=== PATIENT | female | born 1955 | race Caucasian/White ===

== ENCOUNTER → 2017-06-15 | Outpatient (CLI) | payer BC ==
--- NOTE | 2017-06-15 11:21 | BD ---
EXAMINATION TYPE: MG DEXA axial skeleton. DATE OF EXAM: 06/15/2017 COMPARISON: 2014 CLINICAL HISTORY: DISORDER OF BONE AND CARTILAGE Height: 5'6 Weight: 194 FRAX RISK QUESTIONS: Alcohol (3 or more units per day): no Family History (Parent hip fracture): no Glucocorticoids (More than 3mos): no (Ex: prednisone, prednisolone, methylprednisolone, dexamethasone, and hydrocortisone). History of Fracture in Adulthood: no Secondary Osteoporosis: 1. Type 1 Diabetes: no 2. Hyperthyroidism: no 3. Menopause before 45: no 4. Malnutrition: no 5. Chronic liver disease: no Rheumatoid Arthritis: no Current Tobacco Use: no RISK FACTORS HISTORY OF: Postmenopausal woman: MEDICATIONS: Additional Medications: cholesterol, Additional History: osteoporosis EXAM MEASUREMENTS: Bone mineral densitometry was performed using the [employer] System. Bone mineral density as measured about the Lumbar spine is: ----- L1-L4(G/cm2): 0.844 T Score Values are as follows: ----- L2: -3.0 ----- L3: -3.0 ----- L4: -2.5 ----- L1-L4: -2.8 Bone mineral density has: Increased 5.6% since study of: 05/07/2015 Bone mineral density about the R hip (g/cm2): 0.761 Bone mineral density about the L hip (g/cm2): 0.773 T Score values are as follows: -----R Neck: -2.0 -----L Neck: -1.9 -----R Total: -1.9 -----L Total: -2.0 Bone mineral density has: Increased 0.4% since study of: 05/07/2015 IMPRESSION: Osteoporosis (T Score less than -2.5) as noted by T Score values at theL1-L4 There is increased fracture risk and therapy is usually indicated based on age. Re-Screen 1-2 years. NOTE: T-SCORE=SD OF THE YOUNG ADULT MEAN.
--- NOTE | 2017-06-15 12:02 | WWHP ---
[facility] - HISTORY AND PHYSICAL DATE OF SERVICE: 06/15/2017 CHIEF COMPLAINT: The patient is here for her routine gynecologic exam and mammogram. HPI: This is a 61-year-old, G2, P2, with an LMP of 2013. The patient is without gynecologic complaints and denies any postmenopausal bleeding. She was prescribed Fosamax for her osteoporosis in 2014, but she states she never took the medication because of concerns over possible side affects and risks. PAST MEDICAL HISTORY: Elevated cholesterol and osteoporosis. MEDICATIONS: 1. Atorvastatin 10 mg daily. 2. Aspirin 81 mg daily. 3. Probiotic 1 tablet daily. 4. Citracal petite with vitamin D3 two tablets in the a.m. and one tablet in the p.m. 5. Co Q10 two hundred mg daily. 6. Vitamin B12 one thousand mg daily. ALLERGIES: No known drug allergies. PAST SURGICAL HISTORY: section x2, colonoscopy in 2011 and this was her second one. 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 SOCIAL HISTORY: She denies tobacco, alcohol, and drug use. She has been since 1977 and does not work outside the home but does watch her 4 grandchildren. FAMILY HISTORY: Both parents had hypertension. Sister and brother have diabetes. Brother has CHF, mother had colon cancer and an ND. REVIEW OF SYSTEMS: The weight has been stable. She denies respiratory, cardiac or GI problems. PHYSICAL EXAM: Blood pressure 122/87, height 5 feet 6 inches, weight 196 pounds. Temperature 98.1, pulse 92. This is a well-developed, well-nourished, white female, who is alert and oriented x3, in no acute distress. HEENT is within normal limits. NECK: Supple without mass or thyromegaly. CHEST AND LUNGS: Clear to auscultation. HEART: Regular rate and rhythm. Breasts are without mass or discharge. Axillary exam is negative for adenopathy. BACK: Negative for CVA tenderness. ABDOMEN: Soft, nontender, without palpable masses. PELVIC EXAM: External genitalia reveals [id number] atrophy without lesions. Cervix and vagina reveal mild to moderate atrophy without lesions and there is no evidence of prolapse. The uterus is mid position, nongravid size and nontender. There are no palpable adnexal masses or tenderness. Rectovaginal exam is negative for mass or tenderness and is negative for occult blood. EXTREMITIES: Nontender. IMPRESSION: 1. A 61-year-old menopausal female, with normal gynecologic exam. 2. History of osteoporosis, not on medication. PLAN: 1. Pap smear was performed. 2. Self breast examination was discussed. 3. Mammogram will be done today. 4. Osteoporosis management was discussed. She states she will consider medication for the osteoporosis as we have discussed her increased risk for bone fracture. Bone density testing will be done today. We will further discuss medications after we discuss her results. 5. Colonoscopy is due and she states she will have this done later this month. 6. She will return in 1 year. MMODL / IJN: [id number] /
--- NOTE | 2017-06-17 07:07 | MM ---
Reason for exam: screening (asymptomatic). Last mammogram was performed 2 years and 2 months ago. History: Patient is postmenopausal. Physical Findings: A clinical breast exam by your physician is recommended on an annual basis and results should be correlated with mammographic findings. MG Screening Mammo w CAD Bilateral CC and MLO view(s) were taken. Prior study comparison: April 16, 2015, bilateral MG diagnostic mammo w CAD JAG. March 12, 2014, bilateral MG screening mammo w CAD. There are scattered fibroglandular densities. There is no new dominant lesion. ASSESSMENT: Benign, BI-RAD 2 RECOMMENDATION: Routine screening mammogram of both breasts in 1 year.
== END ==
LOC: WWCWWP 09:51
PROVIDERS: ATTEND Obstetrics & Gynecology
DX: Z12.31 Encounter for screening mammogram for malignant neoplasm of breast (principal); M81.0 Age-related osteoporosis without current pathological fracture
CPT/HCPCS: 77080; G0202

== ENCOUNTER → 2017-06-23 | Outpatient (CLI) | payer BC ==
[2017-06-23 09:51] LABS: Non-African American GFR(MDRD) >60 (>60 ml/min/1.73 sqM)
== END | disposition home or self-care (01) ==
LOC: LABWHC1 09:05
PROVIDERS: ATTEND Obstetrics & Gynecology
DX: M81.0 Age-related osteoporosis without current pathological fracture (principal)
CPT/HCPCS: 36415; 82310; 82565

== ENCOUNTER 2017-07-06 08:43 | Day surgery (SDC) | payer BC ==
[2017-07-05 09:05] VITALS: BMI 31.3
[~2017-07-06 08:43] MED LIST: LACTATED RINGERS 1,000 ML IV SCH
[2017-07-06] MEDS ORDERED: LIDOCAINE 1% 20 ML VIAL (10MG/ML) FOR IV START INTRADERMA ONE (09:30)
[2017-07-06 09:33] VITALS: RESP 16; TEMP 97.7
[2017-07-06] MEDS ORDERED: LIDOCAINE 1% INJ 10MG/ML (20 ML MDV) ONE (09:55)
[2017-07-06] MEDS ORDERED: PROPOFOL 10 MG/ML 20 ML VIAL IV ONE (09:55)
--- NOTE | 2017-07-06 10:10 | P.PCN ---
Date of Procedure: 07/06/17 Procedure(s) Performed: BRIEF HISTORY: Patient is a 61-year-old pleasant female, scheduled for an elective colonoscopy as a part of screening for colorectal neoplasia. She has family history of colon cancer diagnosed in her mother at age 70. PROCEDURE PERFORMED: Colonoscopy. PREOPERATIVE DIAGNOSIS: Screening for colon cancer/family history of colon cancer. IV sedation per Anesthesia. PROCEDURE: After informed consent was obtained, the patient, was brought into the endoscopy unit. IV sedation was administered by Anesthesia under continuous monitoring. Digital rectal examination was normal. Initially the Olympus CF- 160 flexible video colonoscope was then inserted in the rectum, gradually advanced into the cecum without any difficulty. Careful examination was performed as the scope was gradually being withdrawn. Ileocecal valve and the appendiceal orifice were visualized and appeared normal. Prep was excellent. Mucosa of the cecum, ascending colon, transverse colon, descending colon, sigmoid colon, and rectum appeared normal. Scattered sigmoid diverticulosis seen. Retroflexion was performed in the rectum and no lesions were seen. The patient tolerated the procedure well. IMPRESSION: Normal-appearing colon from rectum to cecum with no evidence of colorectal neoplasia Scattered sigmoid diverticulosis . RECOMMENDATIONS: Findings of this examination were discussed with the patient as well as her family. She was advised to have a repeat screening colonoscopy in 5 years because of the family history of colon cancer.
[2017-07-06 10:36] VITALS: BP 134/78; PULSE 74
== END 2017-07-06 11:12 | disposition home or self-care (01) ==
LOC: ORWHC2ENDO 08:43
PROVIDERS: ATTEND Internal Medicine Gastroenterology
DX: Z12.11 Encounter for screening for malignant neoplasm of colon (principal); K57.30 Diverticulosis of large intestine without perforation or abscess without bleeding; Z80.0 Family history of malignant neoplasm of digestive organs; E78.5 Hyperlipidemia, unspecified; Z79.82 Long term (current) use of aspirin; Z79.899 Other long term (current) drug therapy
CPT/HCPCS: J2001; J2704; G0105

== ENCOUNTER → 2019-01-10 | Outpatient (CLI) | payer BC ==
[2019-01-10 09:30] VITALS: BP 132/88; PULSE 87; RESP 16; TEMP 97.5; BMI 30.9
--- NOTE | 2019-01-10 10:15 | P.HPOB ---
History of Present Illness H&P Date: 01/10/19 Chief Complaint: The patient is here for her routine gynecologic exam and ma mmogram. This is a 63-year-old with an LMP of 2012. The patient is without gynecologic complaints and denies any postmenopausal bleeding. The patient was previously prescribed Fosamax for osteoporosis in 2014 and again in 2016. Each time she decided not to start the medication. Review of Systems The patient has lost 4 pounds over the last year. She denies respiratory, cardiac, or G.I. problems. Past Medical History Past Medical History: Hyperlipidemia Additional Past Medical History / Comment(s): Osteoporosis. 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 History of Any Multi-Drug Resistant Organisms: None Reported Past Surgical History: Section Additional Past Surgical History / Comment(s): x2, colonoscopy 2011(2nd). Past Anesthesia/Blood Transfusion Reactions: No Reported Reaction Additional Past Anesthesia/Blood Transfusion Reaction / Comment(s): no hx blood transfusion Past Psychological History: No Psychological Hx Reported Smoking Status: Never smoker Past Alcohol Use History: None Reported Past Drug Use History: None Reported Additional History: She has been since 1977. She does not work outside of the home, but watches her 4 grandchildren. - Past Family History Mother Family Medical History: Cancer Additional Family Medical History / Comment(s): colon Father Family Medical History: No Reported History Medications and Allergies Home Medications Medication Instructions Recorded Confirmed Type Aspirin 81 mg PO DAILY 07/05/17 01/10/19 History Calcium Carbonate [Calcium] 1,600 mg PO DAILY 07/05/17 01/10/19 History Cholecalciferol [Vitamin D3] 5,000 unit PO DAILY 07/05/17 01/10/19 History Cyanocobalamin [Vitamin B-12] 100 mcg PO DAILY 07/05/17 01/10/19 History L.acidoph,Paracasei, B.lactis 1 each PO BID 07/05/17 01/10/19 History [Probiotic] Allergies Allergy/AdvReac Type Severity Reaction Status Date / Time No Known Allergies Allergy Verified 01/10/19 09:30 Exam Vital Signs Temp Pulse Resp BP Pulse Ox 01/10/19 09:23 97.5 F L 87 16 132/88 96 Intake and Output 01/09/19 01/10/19 01/10/19 22:59 06:59 14:59 Other: Weight 87.09 kg Height 5'6", weight 192 pounds, BMI 31.0. This is a well-developed well-nourished white female who is alert and oriented times 3 in no acute distress. HEENT: Within normal limits. NECK: Supple without mass or thyromegaly. CHEST AND LUNGS: Clear to auscultation. HEART: Regular rate and rhythm. BREASTS: Are without mass or discharge. AXILLARY EXAM: Negative for adenopathy. BACK: Negative for CVA tenderness. ABDOMEN: Soft, nontender, without palpable masses. PELVIC EXAM: Normal external genitalia with mild to moderate atrophy. Cervix and vagina appear normal with mild to moderate atrophy. There is no unusual discharge. There is no evidence of prolapse. The uterus is midposition, nongravid size and nontender. There are no palpable adnexal masses or tenderness. RECTAL EXAM: rectovaginal exam is negative for mass or tenderness and is negative for occult blood. EXTREMITIES: Nontender. IMPRESSION: 1. 63-year-old menopausal female with normal gynecologic exam. 2. History of osteoporosis declining medication at this time. PLAN: 1. Pap smear was deferred since she had a normal one on 06/15/2017. 2. Self breast awareness was discussed with the patient. 3. Screening mammogram will be done today. 4. Osteoporosis management was discussed. I have stressed the importance of adequate calcium, vitamin D and regular exercise. Recommended amounts of calcium and vitamin D were also discussed. I have again recommended medication for osteoporosis to try to decrease the risk for bone fracture. She understands that she is at a significantly increased risk for fracturing bones. She again is declining medication at this time. She states she will reconsider this decision after she does her bone density test next year. Will plan on repeating the bone density test next year. 5. I have recommended screening colonoscopy since it is been 7 years and because of her mother's history of colon cancer. She states she will contact Dr. Morgan for this since Dr. Morgan did her last colonoscopy. 6.She was advised to return in one year for her annual well woman exam.
--- NOTE | 2019-01-11 14:18 | MM ---
Reason for exam: screening (asymptomatic). Last mammogram was performed 1 year and 7 months ago. History: Patient is postmenopausal. Physical Findings: A clinical breast exam by your physician is recommended on an annual basis and results should be correlated with mammographic findings. MG 3D Screening Mammo W/Cad Bilateral CC and MLO view(s) were taken. Prior study comparison: June 15, 2017, bilateral MG screening mammo w CAD. April 16, 2015, bilateral MG diagnostic mammo w CAD JAG. There are scattered fibroglandular densities. New bilateral nodularity greater in the right breast. These areas appear circumscribed on 3D. ASSESSMENT: Incomplete: need additional imaging evaluation, BI-RAD 0 RECOMMENDATION: Special view mammogram and ultrasound of both breasts. [facility] will attempt to contact patient to return for supplemental views and ultrasound.
== END ==
LOC: WWCWWP 09:11
PROVIDERS: ATTEND Obstetrics & Gynecology
DX: Z12.31 Encounter for screening mammogram for malignant neoplasm of breast (principal)
CPT/HCPCS: 77063; 77067

== ENCOUNTER → 2019-01-30 | Outpatient (CLI) | payer BC ==
--- NOTE | 2019-01-30 10:02 | MM ---
Reason for exam: additional evaluation requested from abnormal screening. Last mammogram was performed 1 month ago. History: Patient is postmenopausal. Physical Findings: Nurse Summary: 0.5cm nodule in th right breast at 2 o'clock, 3 o'clock (nurse kp). MG 3D Work Up W/Cad JAG Bilateral CC and MLO view(s) were taken. Prior study comparison: January 10, 2019, bilateral MG 3d screening mammo w/cad. June 15, 2017, bilateral MG screening mammo w CAD. Bilateral nodularity persists. These results were verbally communicated with the patient and result sheet given to the patient on 01/30/19. ASSESSMENT: Incomplete: need additional imaging evaluation, BI-RAD 0 RECOMMENDATION: Ultrasound of both breasts.
--- NOTE | 2019-01-30 10:04 | USB ---
Reason for exam: additional evaluation requested from abnormal screening. History: Patient is postmenopausal. US Breast Workup Limited JAG Right limited breast ultrasound including focal area of concern, retroareolar and axilla demonstrates a 0.6 x 0.4 x 0.2cm cystic lesion at 7 o'clock, a 0.5 x 0.6 x 0.2cm cystic lesion at 7 o'clock and a 0.4 x 0.4 x 0.2cm cystic lesion at 7 o'clock. Left limited breast ultrasound including focal area of concern, retroareolar and axilla demonstrates a 0.4 x 0.3 x 0.2cm cystic lesion at 11 o'clock. These results were verbally communicated with the patient and result sheet given to the patient on 01/30/19. ASSESSMENT: Benign, BI-RAD 2 RECOMMENDATION: Return to routine screening mammogram schedule for both breasts.
== END ==
LOC: RADMAMWWP 08:51
PROVIDERS: ATTEND Obstetrics & Gynecology
DX: R92.8 Other abnormal and inconclusive findings on diagnostic imaging of breast (principal)
CPT/HCPCS: 77062; 77066

== ENCOUNTER → 2020-07-22 | Outpatient (CLI) | payer BC ==
[2020-07-22 10:58] VITALS: BP 136/89; PULSE 82; RESP 18; TEMP 98.1
--- NOTE | 2020-07-22 12:06 | P.HPOB ---
History of Present Illness H&P Date: 07/22/20 Chief Complaint: The patient is here for her routine gynecologic exam. This is a 64-year-old with an LMP of 2012. The patient states she had 2 recent episodes of postmenopausal spotting from the vagina about 3 weeks ago. They occurred about 1 day apart and were very small amounts. She denies any cramping or pain. This was not associated with any particular activity and she had not been recently sexually active before this occurred. She is otherwise without complaints. She had not had any other episodes of postmenopausal bleeding. Review of Systems The patient has lost 4 pounds over the last year. She denies respiratory, cardiac, or G.I. problems. Past Medical History Past Medical History: Hyperlipidemia Additional Past Medical History / Comment(s): Osteoporosis. 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 History of Any Multi-Drug Resistant Organisms: None Reported Past Surgical History: Section Additional Past Surgical History / Comment(s): x2, colonoscopy 2011(2nd). Past Anesthesia/Blood Transfusion Reactions: No Reported Reaction Additional Past Anesthesia/Blood Transfusion Reaction / Comment(s): no hx blood transfusion Past Psychological History: No Psychological Hx Reported Smoking Status: Never smoker Past Alcohol Use History: None Reported Past Drug Use History: None Reported Additional History: She has been since 1977 and is sexually active. She does not work outside of the home but does watch some of her grandchildren. - Past Family History Mother Family Medical History: Cancer Additional Family Medical History / Comment(s): colon Father Family Medical History: No Reported History Medications and Allergies Home Medications Medication Instructions Recorded Confirmed Type Aspirin 81 mg PO DAILY 07/05/17 07/22/20 History Calcium Carbonate [Calcium] 1,600 mg PO DAILY 07/05/17 07/22/20 History Cholecalciferol [Vitamin D3] 5,000 unit PO DAILY 07/05/17 07/22/20 History Cyanocobalamin [Vitamin B-12] 100 mcg PO DAILY 07/05/17 07/22/20 History L.acidoph,Paracasei, B.lactis 1 each PO BID 07/05/17 07/22/20 History [Probiotic] Hydrochlorothiazide 12.5 mg PO QAM 07/22/20 07/22/20 History [hydroCHLOROthiazide] Turmeric Root Extract [Turmeric] 500 mg PO DAILY 07/22/20 07/22/20 History Vit C/E/Zn/Coppr/Lutein/Zeaxan 1 each PO BID 07/22/20 07/22/20 History [Preservision Areds 2 Softgel] Allergies Allergy/AdvReac Type Severity Reaction Status Date / Time No Known Allergies Allergy Verified 07/22/20 10:49 Exam Vital Signs Temp Pulse Resp BP Pulse Ox 07/22/20 10:52 98.1 F 82 18 136/89 98 Intake and Output 07/21/20 07/22/20 07/22/20 22:59 06:59 14:59 Other: Weight 85.275 kg Height 5 feet 4 inches, weight 188 pounds, BMI 32.3. This is a well-developed well-nourished white female who is alert and oriented times 3 in no acute distress. HEENT: Within normal limits. NECK: Supple without mass or thyromegaly. CHEST AND LUNGS: Clear to auscultation. HEART: Regular rate and rhythm. BREASTS: Are without mass or discharge. There are 2 moles on the right breast at the 6 o'clock position. One is on the areola and measures 12 x 5 mm and one closer to the periphery of the right breast at the 6 o'clock position measuring 10 x 8 mm. These have a benign appearance. AXILLARY EXAM: Negative for adenopathy. BACK: Negative for CVA tenderness. ABDOMEN: Soft, nontender, without palpable masses. PELVIC EXAM: Normal external genitalia with mild atrophy. Cervix and vagina appear normal with mild to moderate atrophy. There is no unusual discharge. No evidence of blood is noted. There is no evidence of prolapse. The uterus is midposition, nongravid size and nontender. There are no palpable adnexal masses or tenderness. On the mons pubis she has 2 moles one measuring 10 x 10 mm and another measuring 9 x 8 mm. RECTAL EXAM: Rectovaginal exam is negative for mass or tenderness and is negative for occult blood. EXTREMITIES: Nontender. IMPRESSION: 1. 64-year-old menopausal female with normal gynecologic exam. 2. 2 episodes a small postmenopausal bleeding about 3 weeks ago with no significant physical findings at this time. 3. History of osteoporosis and she has declined medication for this in the past. PLAN: 1. Pap smear was performed. 2. Self breast awareness was discussed with the patient. 3. Screening mammogram is scheduled for 08/28/2020 and the order slip was given to the patient for this. 4. I have recommended pelvic ultrasound to evaluate the endometrial thickness. The order slip was given to the patient for this. 5. Osteoporosis management was discussed. I have stressed the importance of ad equate calcium, vitamin D and regular exercise. Recommended amounts of calcium and vitamin D were also discussed. I have recommended repeating the bone density testing and the order slip was given to the patient for this. We will again consider medical treatment for the osteoporosis after the results are reviewed with the patient. 6. I have recommended screening colonoscopy since it is been more than 5 years since her last one and because of her family history of colon cancer in her mother. She will discuss this with Dr. Scherer to see if her office can help her to set this up. 7. The patient has multiple skin moles and has seen Dr. Ortiz, the quality assurance practice manager. I have recommended that she follow-up with Dr. Ortiz for regular skin checks. 8. She was advised to return in one year for her annual well woman exam. She was also instructed to call if she has recurrent postmenopausal vaginal bleeding.
--- NOTE | 2020-08-05 15:07 | P.PN ---
Progress Note - Text Progress Note Date: 08/05/20 OUTPATIENT FOLLOW-UP NOTE TEST(S)/RESULTS: Pap smear from 07/22/2020 was negative. METHOD OF NOTIFICATION: Patient was notified by phone. PATIENT COMMENTS: She has her ultrasound and bone density tests scheduled for 08/15/2020. DIAGNOSIS: Pap smear. DISCUSSION: Pelvic ultrasound will be done for small postmenopausal bleeding. PLAN: Pelvic ultrasound and bone density testing on 08/15/2020. Mammogram is scheduled for 08/29/2020.
== END | disposition home or self-care (01) ==
LOC: WWCWWP 10:35
PROVIDERS: ATTEND Obstetrics & Gynecology
DX: Z53.9 Procedure and treatment not carried out, unspecified reason (principal)

== ENCOUNTER → 2020-08-15 | Outpatient (CLI) | payer BC ==
--- NOTE | 2020-08-15 08:03 | US ---
EXAMINATION TYPE: US transvaginal DATE OF EXAM: 08/15/2020 COMPARISON: US CLINICAL HISTORY: N95.0 PMB, Z78.0 post menopausal w/o HRT; One episode of post menopausal bleeding p er patient. TECHNIQUE: Transvaginal (TV). Transvaginal sonographic images were acquired due to empty bladder. Date of LMP: mid age 50's. EXAM MEASUREMENTS: Uterus: 6.7 x 4.5 x 7.0 cm Endometrial Stripe: 3.5mm Right Ovary: 1.0 x 1.0 x 1.7 cm 1. Uterus: Retroverted ; multiple uterine fibroids seen with largest mid upper myometrium = 3.4 x 2. 7 x 2.0cm. ; small Nabothian Cyst seen in cervix = 0.4 x 0.4 x 0.3cm. 2. Endometrium: Inferior endometrial cyst seen = 0.3 x 0.3 x 0.2cm; thickness is wnl as is less than 5.0mm post menopause. 3. Right Ovary: wnl 4. Left Ovary: wnl 5. Bilateral Adnexa: wnl 6. Posterior cul-de-sac: wnl IMPRESSION: 1. Uterine fibroids. 2. Possible endometrial cyst measuring 0.3 cm
--- NOTE | 2020-08-18 11:53 | BD ---
EXAMINATION TYPE: Axial Bone Density DATE OF EXAM: 08/15/2020 COMPARISON: NONE CLINICAL HISTORY: Height: 65 Weight: 187.2 FRAX RISK QUESTIONS: Alcohol (3 or more units per day): no Family History (Parent hip fracture): no Glucocorticoids (More than 3mos): no (Ex: prednisone, prednisolone, methylprednisolone, dexamethasone, and hydrocortisone). History of Fracture in Adulthood: no Secondary Osteoporosis: 1. Type 1 Diabetes: no 2. Hyperthyroidism: no 3. Menopause before 45: no 4. Malnutrition: no 5. Chronic liver disease: no Rheumatoid Arthritis: no Current Tobacco Use: no RISK FACTORS HISTORY OF: Family History of Osteoporosis: no Active: yes Diet low in dairy products/other sources of calcium: no Postmenopausal woman: 60 years old Lost more than 2 inches in height since high school: no MEDICATIONS: blood pressure med, pressure vision Additional History: EXAM MEASUREMENTS: Bone mineral densitometry was performed using the [employer] System. Bone mineral density as measured about the Lumbar spine is: ----- L1-L4(G/cm2): 0.829 T Score Values are as follows: ----- L2: -3.1 ----- L3: -2.9 ----- L4: -2.8 ----- L1-L4: -2.9 Bone mineral density has: decreased -1.7 % since study of: 06.15.2017 Bone mineral density about the R hip (g/cm2): 0.782 Bone mineral density about the L hip (g/cm2): 0.799 T Score values are as follows: -----R Neck: -1.8 -----L Neck: -1.7 -----R Total: -2.1 -----L Total: -1.7 Bone mineral density has: decreased -0.1 % since study of: 06.15.2017 IMPRESSION: Osteoporosis NOTE: T-SCORE=SD OF THE YOUNG ADULT MEAN.
== END | disposition home or self-care (01) ==
LOC: RADUSWWP 07:00
PROVIDERS: ATTEND Obstetrics & Gynecology
DX: D25.9 Leiomyoma of uterus, unspecified (principal); M81.0 Age-related osteoporosis without current pathological fracture; Z78.0 Asymptomatic menopausal state
CPT/HCPCS: 76830; 77080

== ENCOUNTER → 2020-08-28 | Outpatient (CLI) | payer BC ==
--- NOTE | 2020-08-29 09:41 | MM ---
Reason for exam: screening (asymptomatic). Last mammogram was performed 1 year and 7 months ago. History: Patient is postmenopausal. Physical Findings: A clinical breast exam by your physician is recommended on an annual basis and results should be correlated with mammographic findings. MG 3D Screening Mammo W/Cad Bilateral CC and MLO view(s) were taken. Prior study comparison: January 30, 2019, bilateral MG 3d work up w/cad JAG. January 10, 2019, bilateral MG 3d screening mammo w/cad. The breast tissue is heterogeneously dense. This may lower the sensitivity of mammography. There is no discrete abnormality. No significant changes when compared with prior studies. ASSESSMENT: Negative, BI-RAD 1 RECOMMENDATION: Routine screening mammogram of both breasts in 1 year.
== END | disposition home or self-care (01) ==
LOC: RADMAMWWP 13:35
PROVIDERS: ATTEND Obstetrics & Gynecology
DX: Z12.31 Encounter for screening mammogram for malignant neoplasm of breast (principal)
CPT/HCPCS: 77063; 77067

== ENCOUNTER → 2022-05-04 | Outpatient (CLI) | payer BC, MEDICARE ==
[2022-05-04 08:14] VITALS: BP 136/93; PULSE 79; RESP 17; TEMP 97.9
--- NOTE | 2022-05-04 08:54 | P.HPOB ---
History of Present Illness H&P Date: 05/04/22 Chief Complaint: The patient is here for her routine gynecologic exam and ma mmogram. This is a 66-year-old with an LMP of 2012. The patient is without gynecologic complaints and denies any postmenopausal bleeding. Review of Systems The patient has lost 20 pounds over the last 2 years. She denies respiratory, cardiac, or G.I. problems. Past Medical History Past Medical History: Hyperlipidemia Additional Past Medical History / Comment(s): Osteoporosis(Boniva since 08/2020). 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 History of Any Multi-Drug Resistant Organisms: None Reported Past Surgical History: Section Additional Past Surgical History / Comment(s): x2, colonoscopy 20 (). Past Anesthesia/Blood Transfusion Reactions: No Reported Reaction Additional Past Anesthesia/Blood Transfusion Reaction / Comment(s): no hx blood transfusion Past Psychological History: No Psychological Hx Reported Smoking Status: Never smoker Past Alcohol Use History: None Reported Past Drug Use History: None Reported Additional History: She has been since 1977 and is sexually active. She does not work outside of the home. Her son and his children are now living with her. - Past Family History Mother Family Medical History: Cancer Additional Family Medical History / Comment(s): colon Father Family Medical History: No Reported History Medications and Allergies Home Medications Medication Instructions Recorded Confirmed Type Aspirin 81 mg PO DAILY 07/05/17 05/04/22 History Calcium Carbonate [Calcium] 1,600 mg PO DAILY 07/05/17 05/04/22 History Cholecalciferol [Vitamin D3] 5,000 unit PO DAILY 07/05/17 05/04/22 History Cyanocobalamin [Vitamin B-12] 100 mcg PO DAILY 07/05/17 05/04/22 History L.acidoph,Paracasei, B.lactis 1 each PO BID 07/05/17 05/04/22 History [Probiotic] Turmeric Root Extract [Turmeric] 500 mg PO DAILY 07/22/20 05/04/22 History Vit C/E/Zn/Coppr/Lutein/Zeaxan 1 each PO BID 07/22/20 05/04/22 History [Preservision Areds 2 Softgel] hydroCHLOROthiazide 12.5 mg PO QAM 07/22/20 05/04/22 History Ibandronate Sodium 150 mg PO QMONTHLY #3 tab 09/16/20 05/04/22 Rx Allergies Allergy/AdvReac Type Severity Reaction Status Date / Time No Known Allergies Allergy Verified 05/04/22 08:09 Exam Vital Signs Temp Pulse Resp BP Pulse Ox 05/04/22 08:11 97.9 F 79 17 136/93 100 Intake and Output 05/03/22 05/04/22 05/04/22 22:59 06:59 14:59 Other: Weight 76.204 kg Height 5 feet 6 inches, weight 168 pounds, BMI 27.1. This is a well-developed well-nourished white female who is alert and oriented times 3 in no acute distress. HEENT: Within normal limits. NECK: Supple without mass or thyromegaly. CHEST AND LUNGS: Clear to auscultation. HEART: Regular rate and rhythm. BREASTS: Are without mass or discharge. There are 2 moles on the right breast. One is at the 6 o'clock position and measures 12 x 8 mm and is very dark in the center. And is one at the inferior aspect of the areola measuring 12x5mm. AXILLARY EXAM: Negative for adenopathy. BACK: Negative for CVA tenderness. ABDOMEN: Soft, nontender, without palpable masses. PELVIC EXAM: Normal external genitalia with mild to moderate atrophy. Cervix and vagina appear normal with mild to moderate atrophy. There is no unusual discharge. There is no evidence of prolapse. The uterus is midposition, nongravid size and nontender. There are no palpable adnexal masses or tenderness. On the mons pubis there are 2 moles which are stable in appearance from her previous exam. The mole on the right measures 10 x 10 mm and one to the left of the midline measures 8 x 8 mm. RECTAL EXAM: rectovaginal exam is negative for mass or tenderness and is negative for occult blood. EXTREMITIES: Nontender. IMPRESSION: 1. 66-year-old menopausal female with normal gynecologic exam. 2. History of osteoporosis and has been on Boniva since approximately August 2020. PLAN: 1. Pap smear was deferred since she had a normal one on 07/22/2020. We will do the Pap smear in approximately 1 year and if it is negative at that time, we will plan on discontinuing Pap smears. 2. Self breast awareness was discussed with the patient. We have also discussed symptoms associated with inflammatory breast cancer. 3. Screening mammogram will be done today. 4. She states she plans on seeing Dr. Ortiz for the moles and skin check. She had an appointment with him, but it was canceled. She will make a new appoi ntment with him. 5. Osteoporosis management was discussed. I have stressed the importance of adequate calcium, vitamin D and regular exercise. She will continue Boniva monthly. We will plan on repeating the bone density test in approximately 1 year. 6. She has completed her Covid vaccination series and she will consider the booster. 7. She was advised to return in one year for her annual well woman exam.
--- NOTE | 2022-05-05 17:55 | MM ---
Reason for Exam: Screening (asymptomatic). Last mammogram was performed 1 year(s) and 8 month(s) ago. Patient History: Menarche at age 13. First Full-Term at age 26. Postmenopausal. Risk Values: Sylwia 5 year model risk: 1.8%. NCI Lifetime model risk: 6.9%. Prior Study Comparison: 01/10/2019 Bilateral Screening Mammogram, [facility]. 01/30/2019 Bilateral Diagnostic Mammogram, [facility]. 08/28/2020 Bilateral Screening Mammogram, [facility]. Tissue Density: There are scattered fibroglandular densities. Findings: Analyzed By CAD. Focal asymmetries in the upper mid right breast, Stable. No suspicious groups of microcalcifications, spiculated or lobular masses, architectural distortion or other secondary signs of malignancy are mammographically apparent. Overall Assessment: Benign, BI-RAD 2 Management: Screening Mammogram of both breasts in 1 year. A negative mammogram report should not preclude additional follow up of suspicious palpable abnormalities. Patient should continue monthly self breast exam. A clinical breast exam by your physician is recommended on an annual basis and results should be correlated with mammographic findings. Electronically signed and approved by: David Lowery D.O. Radiologis
== END | disposition home or self-care (01) ==
LOC: WWCWWP 08:01
PROVIDERS: ATTEND Obstetrics & Gynecology
DX: Z12.31 Encounter for screening mammogram for malignant neoplasm of breast (principal); Z78.0 Asymptomatic menopausal state
CPT/HCPCS: 77063; 77067

== ENCOUNTER → 2022-07-05 | Outpatient (CLI) | payer BC, MEDICARE ==
--- NOTE | 2022-07-05 14:38 | US ---
EXAMINATION TYPE: US abdomen complete DATE OF EXAM: 07/05/2022 COMPARISON: NONE CLINICAL HISTORY: 66-year-old female R10.13 Epigastric pain. Pt states epigastric pain on/off x yrs TECHNIQUE: Multiple sonographic images of the abdomen are obtained. FINDINGS: EXAM MEASUREMENTS: Liver Length: 14.3 cm Gallbladder Wall: 0.2 cm CBD: 0.4 cm Spleen: 8.7 cm Right Kidney: 9.9 x 4.7 x 4.7cm Left Kidney: 9.7 x 5.4 x 4.5 cm DIRECTOR COMPENSATION NOTES: Pancreas: Obscured by bowel gas Liver: Visualized portions appeared wnl Gallbladder: There are multiple mobile gallstones measuring up to 1.3 cm. Some are immobile at the le dustin of the gallbladder neck. No abnormal gallbladder distention, wall thickening, or surrounding flui d . Slightly irregular appearance to the fundus of the gallbladder. Evidence for sonographic Wagner's sign: No CBD: wnl Spleen: wnl Right Kidney: wnl, lower pole gassed out Left Kidney: wnl, lower pole gassed out Upper IVC: wnl Abd Aorta: wnl IMPRESSION: 1. Limited visualization of the lower pole of both kidneys as well as the pancreas. 2. Cholelithiasis with stones measuring up to 1.3 cm. Some are located at the gallbladder neck region . However, there are no ancillary findings of acute cholecystitis at this time. 3. Additionally, there is irregularity at the fundus of the gallbladder. This could represent additio nal stones. Recommend precautionary follow-up ultrasound in 6-8 weeks to exclude a mural based/mucosa l lesion here.
== END | disposition home or self-care (01) ==
LOC: RADUSWWP 08:30
PROVIDERS: ATTEND Family Medicine
DX: R10.13 Epigastric pain (principal)
CPT/HCPCS: 76700

== ENCOUNTER 2022-07-21 06:25 | Day surgery (SDC) | payer BC, MEDICARE ==
[2022-07-20 08:38] VITALS: BMI 25.8
[~2022-07-21 06:25] MED LIST changes: +LIDOCAINE 1% (10MG/ML) FOR IV START INTRADERMA PRN
[2022-07-21 07:06] VITALS: TEMP 96.9
[2022-07-21] MEDS ORDERED: PROPOFOL 10 MG/ML 20 ML VIAL IV ONE (07:29)
--- NOTE | 2022-07-21 07:55 | P.PCN ---
Date of Procedure: 07/21/22 Procedure(s) Performed: Brief history: Patient is a pleasant 66-year-old white female scheduled for an elective upper endoscopy as well as colonoscopy as a part of evaluation of epigastric pain and screening for colon cancer. Her mother was diagnosed with colon cancer at age 74. Procedure performed: Esophagogastroduodenoscopy with biopsy Colonoscopy Preoperative diagnosis: GERD/epigastric pain Screening for colon cancer/family history of colon cancer Anesthesia: [facility] [place] Procedure: After informed consent was obtained from the patient was brought into the endoscopy unit and IV sedation was administered by anesthesia under continuous monitoring. Initially upper endoscopy was done. The Olympus GF 160 video endoscope was inserted inserted into the mouth and esophagus intubated without any difficulty and was gradually advanced into the stomach and duodenum and carefully examined. The bulb and second part of the duodenum appeared normal. The scope was then withdrawn into the stomach adequately insufflated with air and upon careful examination the antrum had mild gastritis and biopsies were done from this area. The body, cardia and fundus appeared normal. The scope was then withdrawn into the esophagus. Small to moderate size hiatal hernia noted. The GE junction was located at 35 cm to the incisors. It appeared regular with no erythema erosions or ulcerations. Rest of the esophagus appeared normal. Abscesses were done from the distal esophagus Patient tolerated the procedure well. At this time the patient continued to remain sedation. Initial digital rectal examination was normal. Olympus CF 160 video colonoscope was then inserted into the rectum and gradually advanced to the cecum without any difficulty. Careful examination was performed as the scope was gradually being withdrawn. The prep was excellent. The cecum, ascending colon, transverse colon, descending colon, sigmoid colon and rectum appeared normal. Scattered sigmoid diverticulosis. Retroflexion was performed in the rectum and no lesions were noted. Patient tolerated the procedure well. Impression: 1. Upper endoscopy revealed mild antral gastritis, small to moderate size hiatal hernia but no esophagitis 2. Colonoscopy revealed scattered sigmoid diverticula cyst but no evidence of colorectal neoplasia Recommendations: Findings of this examination were discussed with the patient as well as her family. She was advised to follow with the biopsy results. In the meantime she will be given a trial of Prilosec 20 mg daily half hour before breakfast for 6 weeks. Recommend repeat screening colonoscopy in 5 years.
[2022-07-21 08:03] VITALS: PULSE 78
[2022-07-21 08:22] VITALS: BP 145/88; RESP 18
== END 2022-07-21 09:26 | disposition home or self-care (01) ==
LOC: ORWHC2ENDO 06:25
PROVIDERS: ATTEND Internal Medicine Gastroenterology
DX: Z12.11 Encounter for screening for malignant neoplasm of colon (principal); K29.50 Unspecified chronic gastritis without bleeding; K21.00 Gastro-esophageal reflux disease with esophagitis, without bleeding; K57.30 Diverticulosis of large intestine without perforation or abscess without bleeding; K44.9 Diaphragmatic hernia without obstruction or gangrene; E78.5 Hyperlipidemia, unspecified; Z80.0 Family history of malignant neoplasm of digestive organs; Z79.899 Other long term (current) drug therapy
CPT/HCPCS: 88305; 88342; 45378; 43239; J2704

== ENCOUNTER → 2023-09-07 | Outpatient (CLI) | payer MEDICARE ==
--- NOTE | 2023-09-07 11:42 | BD ---
EXAMINATION TYPE: Axial Bone Density DATE OF EXAM: 09/07/2023 CLINICAL HISTORY: 67 years old Female. ICD-10 CODE: M81.0 osteoporosis Height: 64.75in Weight: 175lb FRAX RISK QUESTIONS: Secondary Osteoporosis: RISK FACTORS HISTORY OF: Active: yes Postmenopausal woman: yes MEDICATIONS: Osteoporosis Medications: Which medication: yes, unsure of which one How Long: about 1 year Additional Medications: bp med, vitamin d Additional History: EXAM MEASUREMENTS: Bone mineral densitometry was performed using the [employer] System. Bone mineral density as measured about the Lumbar spine is: ----- L1-L4(G/cm2): 0.865 T Score Values are as follows: ----- L1: -3.2 ----- L2: -3.1 ----- L3: -2.5 ----- L4: -2.1 ----- L1-L4: -2.6 Z Score Values are as follows: ----- L1: -2.1 ----- L2: -1.9 ----- L3: -1.4 ----- L4: -0.9 ----- L1-L4: -1.5 Bone mineral density has: Increased 4.3% since study of: 08-15-20 Bone mineral density about the R hip (g/cm2): 0.730 Bone mineral density about the L hip (g/cm2): 0.752 T Score values are as follows: -----R Neck: -2.1 -----L Neck: -2.0 -----R Total: -2.2 -----L Total: -2.0 Z Score values are as follows: -----R Neck: -0.9 -----L Neck: -0.8 -----R Total: -1.3 -----L Total: -1.1 Bone mineral density has: Decreased -3.4% since study of: 08-15-20 FRAX%s: The graph provided illustrates a 11.4% chance for a major osteoporotic fx and a 1.9% chance f or the hips probability for fx in 10 years time. IMPRESSION: Osteoporosis (T Score less than -2.5). There is increased fracture risk and therapy is usually indicated based on age. Re-Screen 1-2 years. NOTE: T-SCORE=SD OF THE YOUNG ADULT MEAN.
--- NOTE | 2023-09-08 08:00 | MM ---
Reason for Exam: Screening (asymptomatic). Last mammogram was performed 1 year(s) and 4 month(s) ago. Patient History: Menarche at age 13. First Full-Term at age 26. Postmenopausal. Patient has history of breast feeding. Risk Values: Sylwia 5 year model risk: 1.9%. NCI Lifetime model risk: 6.7%. Prior Study Comparison: 06/15/2017 Bilateral Screening Mammogram, [facility]. 01/10/2019 Bilateral Screening Mammogram, [facility]. 01/30/2019 Bilateral Diagnostic Mammogram, [facility]. 08/28/2020 Bilateral Screening Mammogram, [facility]. 05/04/2022 Bilateral MG 3D screening mammo w/cad, [facility]. Tissue Density: The breast tissue is heterogeneously dense. This may lower the sensitivity of mammography. Findings: Analyzed By CAD. There is no suspicious group of microcalcifications or new suspicious mass in either breast. Asymmetric density upper left MLO view 7.4 cm from the nipple. Additional views recommended. Overall Assessment: Incomplete: need additional imaging evaluation, BI-RAD 0 Management: Diagnostic Mammogram of the left breast. . Patient should continue monthly self-breast exams. A clinical breast exam by your physician is recommended on an annual basis. This exam should not preclude additional follow-up of suspicious palpable abnormalities. Note on Sylwia scores and lifetime risk: 1. A Sylwia score greater than 3% is considered moderate risk. If this is the case, consider specialist referral to assess eligibility for a risk reducing agent. 2. If overall lifetime risk for the development of breast cancer is 20% or higher, the patient may qualify for future screening with alternating mammogram and breast MRI. Electronically signed and approved by: Caleb Healy M.D. Radiologis
== END | disposition home or self-care (01) ==
LOC: RADMAMWWP 08:15
PROVIDERS: ATTEND Family Medicine
DX: Z12.31 Encounter for screening mammogram for malignant neoplasm of breast (principal); M81.0 Age-related osteoporosis without current pathological fracture; M85.89 Other specified disorders of bone density and structure, multiple sites; Z78.0 Asymptomatic menopausal state
CPT/HCPCS: 77063; 77067; 77080

== ENCOUNTER → 2023-09-16 | Outpatient (CLI) | payer MEDICARE ==
--- NOTE | 2023-09-16 10:53 | MM ---
Reason for Exam: Additional evaluation requested from abnormal screening. Last screening mammogram was performed less than 1 month ago. Patient History: Menarche at age 13. First Full-Term at age 26. Postmenopausal. Patient has history of breast feeding. Risk Values: Sylwia 5 year model risk: 1.9%. NCI Lifetime model risk: 6.7%. Prior Study Comparison: 08/28/2020 Bilateral Screening Mammogram, [facility]. 05/04/2022 Bilateral MG 3D screening mammo w/cad, [facility]. 09/07/2023 Bilateral MG 3D screening mammo w/cad, [facility]. Tissue Density: Left: There are scattered fibroglandular densities. Findings: Analyzed By CAD. The superior asymmetric density left breast middle depth does not persist on additional views. Findings compatible with superimposition shadow. Overall Assessment: Negative, BI-RAD 1 Management: Screening Mammogram of both breasts in 1 year. . Results were given to the patient verbally at the time of exam. Patient should continue monthly self-breast exams. A clinical breast exam by your physician is recommended on an annual basis. This exam should not preclude additional follow-up of suspicious palpable abnormalities. Note on Sylwia scores and lifetime risk: 1. A Sylwia score greater than 3% is considered moderate risk. If this is the case, consider specialist referral to assess eligibility for a risk reducing agent. 2. If overall lifetime risk for the development of breast cancer is 20% or higher, the patient may qualify for future screening with alternating mammogram and breast MRI. Electronically signed and approved by: Raisa Yost M.D. Radiologist
== END | disposition home or self-care (01) ==
LOC: RADMAMWWP 10:19
PROVIDERS: ATTEND Family Medicine
DX: R92.322 Mammographic fibroglandular density, left breast (principal); Z78.0 Asymptomatic menopausal state
CPT/HCPCS: 77065; G0279; 77061

== ENCOUNTER → 2024-02-10 | Outpatient (CLI) | payer MEDICARE ==
--- NOTE | 2024-02-10 12:13 | US ---
EXAMINATION TYPE: US gallbladder DATE OF EXAM: 02/10/2024 COMPARISON: US CLINICAL INDICATION: Female, 68 years old with history of K82.9 DISEASE OF GALLBLADDER; F/U from prio r, known gallstones TECHNIQUE: Multiple sonographic images of the right upper quadrant are obtained. FINDINGS: EXAM MEASUREMENTS: Liver Length: 13.3 cm Gallbladder Wall: 0.2 cm CBD: 0.4 cm Right Kidney: 9.8 x 4.6 x 4.8 cm Pancreas: Obscured by bowel gas Liver: Visualized portions appeared wnl Gallbladder: Lumen filled with gallstones, shadowing at fundus felt to reflect stones, not lesion Evidence for sonographic Wagner's sign: No CBD: wnl Right Kidney: wnl, lower pole obscured by overlying bowel gas IMPRESSION: 1. Cholelithiasis with no gallbladder distention, wall thickening or biliary ductal dilatation. Sonog raphic Wagner sign is negative. 2. Limited evaluation of the pancreas and right kidney due to bowel gas. 3. Liver unremarkable
== END | disposition home or self-care (01) ==
LOC: RADUSWWP 07:11
PROVIDERS: ATTEND Family Medicine
DX: K80.20 Calculus of gallbladder without cholecystitis without obstruction (principal)
CPT/HCPCS: 76705